=== PATIENT | male | born 1965 ===

== ENCOUNTER 2016-12-15 22:39 | Emergency (ER) | payer SELFPAY ==
[2016-12-15 23:08] VITALS: BP 110/80; PULSE 98; RESP 16; TEMP 98.2; O2SAT 97
[2016-12-15] MEDS ORDERED: Amoxicillin-Clav 875-125 mg Tab PO STA (23:21)
[2016-12-15] MEDS ORDERED: Bacitracin 500 Units/gm Oint Foilpak UD TOP STA (23:21)
[2016-12-15] MEDS ORDERED: Tetanus/Diphtheria Toxoids 0.5 ml Syringe IM ONE ×2 (23:21→23:26)
[2016-12-15] MEDS ORDERED: Amoxicillin-Clav 875-125 mg Tab PO ONE (23:25)
[2016-12-15] MEDS ORDERED: Bacitracin 500 Units/gm Oint Foilpak UD ONE (23:26)
--- NOTE | 2016-12-15 23:45 | C.PDOC ---
History Of Present Illness Patient is a 51 year old male who presents to the ER SP dog bite. Patient states his neighbors dog attacked his dog and in an attempt to break them up he was bit multiple times on the right forearm. Patient states he is unaware of the dogs current immunization status. Patient reports his last tetanus vaccine was 6 years ago. Patient denies any other injury. Time Seen by Provider: 12/15/16 23:14 Chief Complaint (Nursing): Bite History Per: Patient History/Exam Limitations: no limitations Onset/Duration Of Symptoms: Hrs Current Symptoms Are (Timing): Still Present Location Of Injury: Right: Forearm Quality Of Symptoms: Painful Recent travel outside of the [place]: No - Animal Bite Description Of The Attack: Other (Breaking up dog fight) Description Of The Animal: Neighbor's Pet Reports Animal Appears: Well Reports Animal's Immunization Status: Unknown Animal Control Notified: No Past Medical History Reviewed: Historical Data, Nursing Documentation, Vital Signs Vital Signs: Last Vital Signs Temp 98.2 F 12/15/16 23:03 Pulse 98 H 12/15/16 23:03 Resp 16 12/15/16 23:03 BP 110/80 12/15/16 23:03 Pulse Ox 97 12/15/16 23:45 - Medical History PMH: No Chronic Diseases Surgical History: Appendectomy Family History: States: Unknown Family Hx - Social History Hx Alcohol Use: No Hx Substance Use: No Review Of Systems Musculoskeletal: Positive for: Arm Pain (Right forearm) Physical Exam - Physical Exam Appears: Well, Non-toxic Skin: Normal Color, Warm, Dry Head: Atraumatic, Normacephalic Oral Mucosa: Moist Extremity: Other (Multiple bleeding bite wounds to right forearm) Neurological/Psych: Oriented x3, Normal Speech, Normal Cognition ED Course And Treatment O2 Sat by Pulse Oximetry: 97 (Room air) Pulse Ox Interpretation: Normal Progress Note: Bacitracin applied. Amoxicillin and tetanus vaccine administered. Patient was advised to verifiy dogs current immunization status and follow up for rabies vaccine if needed. Disposition - Disposition Disposition: HOME/ ROUTINE Disposition Time: 23:44 Condition: STABLE Additional Instructions: follow up with PMD within 1-2 days. Please return to Ed for rabies vaccination if you can't obtain immunization history of the dog that attacked you today. Prescriptions: Amoxicillin/Clavulanate [Augmentin 875 MG-125 MG] 1 tab PO BID #14 tab Instructions: Animal Bite (ED) - Clinical Impression Clinical Impression: Dog bite - Scribe Statement The provider has reviewed the documentation as recorded by the [place] [employer] All medical record entries made by the Katerinibe were at my direction and personally dictated by me. I have reviewed the chart and agree that the record accurately reflects my personal performance of the history, physical exam, medical decision making, and the department course for this patient. I have also personally directed, reviewed, and agree with the discharge instructions and disposition.
== END 2016-12-15 23:57 | disposition home or self-care (01) ==
LOC: C.ER 22:39
DX: S51.851A Open bite of right forearm, initial encounter (principal); W54.0XXA Bitten by dog, initial encounter

== ENCOUNTER 2018-04-24 07:43 | Day surgery (SDC) | payer BC ==
[2018-04-23 14:49] VITALS: BMI 40.4
[2018-04-24] MEDS ORDERED: Lactated Ringer's 1,000 ML IV ONE (09:20)
[2018-04-24] MEDS ORDERED: Propofol 10 mg/ml Inj (20 ML) ONE ×2 (09:28→09:54)
[2018-04-24] MEDS ORDERED: Lidocaine Hydrochloride 5 ML INJ ONE (09:53)
[2018-04-24 13:03] VITALS: BP 110/65; PULSE 80; RESP 18; TEMP 97; O2SAT 98
== END 2018-04-24 11:15 | disposition home or self-care (01) ==
LOC: C.ENDO 07:43
PROVIDERS: ATTEND Internal Medicine Gastroenterology
DX: Z12.11 Encounter for screening for malignant neoplasm of colon (principal); D12.7 Benign neoplasm of rectosigmoid junction; K64.1 Second degree hemorrhoids; E11.9 Type 2 diabetes mellitus without complications; K21.9 Gastro-esophageal reflux disease without esophagitis; Z98.890 Other specified postprocedural states; Z90.49 Acquired absence of other specified parts of digestive tract; Z79.2 Long term (current) use of antibiotics; Z79.4 Long term (current) use of insulin; Z79.899 Other long term (current) drug therapy
CPT/HCPCS: 45385; 82948; 88305; J2704; J7120